=== PATIENT | male | born 1945 | race Two or more races ===

== ENCOUNTER 2022-01-11 19:30 | Emergency (ER) | payer OTHER ==
[~2022-01-11] VITALS: Ht 172.7 cm; Wt 88.5 kg
[2022-01-11] MEDS ORDERED: TIROSINT137 MCG PO (19:43)
[2022-01-11] MEDS ORDERED: KETO10TA2 PO (21:58)
[2022-01-11] MEDS ORDERED: ORPHENADRINE C100 MG PO (21:58)
== END 2022-01-11 22:37 | disposition home or self-care (01) ==
LOC: ER 19:30
DX: M54.50 Low back pain, unspecified (principal)

== ENCOUNTER 2022-07-14 07:41 | Emergency (ER) | payer OTHER ==
[~2022-07-14] VITALS: Ht 170.2 cm; Wt 88.5 kg
[~2022-07-14 07:41] MED LIST: KETO10TA2 PO; ORPHENADRINE C100 MG PO; TIROSINT137 MCG PO
== END 2022-07-14 10:28 | disposition home or self-care (01) ==
LOC: ER 07:41
DX: S33.9XXA Sprain of unspecified parts of lumbar spine and pelvis, initial encounter (principal); W06.XXXA Fall from bed, initial encounter; Y93.9 Activity, unspecified; Y92.013 Bedroom of single-family (private) house as the place of occurrence of the external cause; E03.9 Hypothyroidism, unspecified